=== PATIENT | female | born 1970 | race Caucasian/White ===

== ENCOUNTER 2019-12-06 11:50 | Emergency (ER) | payer BC ==
[~2019-12-06] VITALS: Ht 154.9 cm; Wt 79.5 kg
[2019-12-06] MEDS ORDERED: proparacaine 0.5% ophthalmic drops 15ml EACHEYE ONE (13:20)
[2019-12-06] MEDS ORDERED: CIPR2.5D18 LEFTEYE (13:51)
[2019-12-06 14:06] VITALS: BP 147/103
== END 2019-12-06 14:08 | disposition home or self-care (01) ==
LOC: ER 11:50
DX: H11.32 Conjunctival hemorrhage, left eye (principal); Z88.1 Allergy status to other antibiotic agents; Z88.0 Allergy status to penicillin; Z88.8 Allergy status to other drugs, medicaments and biological substances; Z79.2 Long term (current) use of antibiotics
CPT/HCPCS: 99283